=== PATIENT | female | born 1950 | race American Indian/Alaskan Native ===

== ENCOUNTER 2018-03-29 14:17 | Emergency (ER) | payer BC, MEDICARE ==
[2018-03-29 14:44] VITALS: BMI 33.9
[2018-03-29 14:48] VITALS: O2SAT 100
[2018-03-29] MEDS ORDERED: Lidocaine 2% Jelly (Uro-Jet) TOP ONE (16:25)
[2018-03-29 16:28] LABS: SQUAMOUS EPITHIAL 3 /hpf (0-5); URINE BACTERIA RARE (<OCC); URINE BILIRUBIN NEGATIVE (NEGATIVE); URINE BLOOD NEGATIVE (NEGATIVE); URINE CLARITY Clear (Clear); URINE COLOR Yellow (YELLOW); URINE GLUCOSE (UA) NORMAL (Normal); URINE LEUKOCYTE ESTERASE 1+ Leu/uL (Negative); URINE PROTEIN NEGATIVE (NEGATIVE)
--- NOTE | 2018-03-29 16:36 | RAD ---
Date of service: 03/29/2018 PROCEDURE: Radiographs of the chest and abdomen (obstructive series) HISTORY: abd pain, ? rectal stool impaction COMPARISON: No prior. TECHNIQUE: AP radiograph of the chest, with upright and supine radiographs of the abdomen. FINDINGS: CHEST: Lungs: Clear. Cardiovascular: Normal size heart. No pulmonary vascular congestion. No aortic atherosclerotic calcification present Pleura: No pleural fluid. No pneumothorax. Other findings: None. ABDOMEN AND PELVIS: Bowel: Constipation without fecal impaction or obstruction. Free air: None. Bones: Unremarkable. Other findings: None. IMPRESSION: Constipation without fecal impaction or obstruction.
[2018-03-29 16:39] LABS: BASO # 0.1 K/uL (0.0-0.2); BASO % 0.7 % (0.0-2.0); EOS # 0.2 K/uL (0.0-0.7); EOS % 1.5 % (0.0-4.0); HEMOGLOBIN 11.7 g/dL (11.0-16.0); LYMPH # 2.9 K/uL (1.0-4.3); LYMPH % 27.7 % (20.0-40.0); MEAN CELL VOLUME 90.2 fL (81.0-99.0); MEAN CORPUSCULAR HEMOGLOBIN 29.3 pg (27.0-31.0); MEAN CORPUSCULAR HGB CONC 32.5 g/dL (33.0-37.0); MEAN PLATELET VOLUME 8.3 fL (7.2-11.7); MONO # 0.8 K/uL (0.0-0.8); MONO % 8.1 % (0.0-10.0); NEUT # 6.4 K/uL (1.8-7.0); NRBC % 0.1 % (0.0-2.0); RBC 3.98 Mil/uL (3.80-5.20); RED CELL DISTRIBUTION WIDTH 11.9 % (11.5-14.5); WHITE BLOOD COUNT 10.3 K/uL (4.8-10.8)
[2018-03-29 16:52] LABS: ALB/GLOB RATIO 1.2 (1.0-2.1); ALBUMIN 4.4 g/dL (3.5-5.0); CALCIUM 8.9 mg/dl (8.6-10.4)
[2018-03-29] MEDS ORDERED: Lidocaine 2% Jelly (Uro-Jet) ONE (16:58)
[2018-03-29 18:35] VITALS: BP 150/82; PULSE 72; RESP 18; TEMP 98
[2018-03-29] MEDS ORDERED: Magnesium Citrate Oral SOL (300 ml) PO ONE (18:40)
--- NOTE | 2018-03-29 18:41 | C.PDOC ---
History Of Present Illness 67 year old female presents to the ED c/o chronic constipation. Patient reports she digitally disimpaction herself. Patient reports she eat 3-4 bags of peanuts by herself and her diet is based on meat, stuffing and potatoes. Patient denies fever, chills, nausea, vomit, diarrhea, back pain, dysuria, hematuria. Time Seen by Provider: 03/29/18 15:52 Chief Complaint (Nursing): Abdominal Pain History Per: Patient History/Exam Limitations: no limitations Onset/Duration Of Symptoms: Days Current Symptoms Are (Timing): Still Present Location Of Pain/Discomfort: Diffuse Quality Of Discomfort: "Pain" Associated Symptoms: Constipation. denies: Nausea, Vomiting, Diarrhea, Urinary Symptoms Recent travel outside of the [place]: No Additional History Per: Patient Abnormal Vaginal Bleeding: No Past Medical History Reviewed: Historical Data, Nursing Documentation, Vital Signs Vital Signs: Last Vital Signs Temp 98 F 03/29/18 18:35 Pulse 72 03/29/18 18:35 Resp 18 03/29/18 18:35 BP 150/82 03/29/18 18:35 Pulse Ox 100 03/29/18 18:35 - Medical History PMH: HTN Surgical History: No Surg Hx Family History: States: Unknown Family Hx - Social History Hx Alcohol Use: No Hx Substance Use: Yes (former cocaine, heroin user) - Immunization History Hx Tetanus Toxoid Vaccination: No Hx Influenza Vaccination: No Hx Pneumococcal Vaccination: No Review Of Systems Constitutional: Negative for: Fever, Chills Eyes: Negative for: Vision Change Cardiovascular: Negative for: Chest Pain Respiratory: Negative for: Shortness of Breath Gastrointestinal: Positive for: Abdominal Pain, Constipation. Negative for: Nausea, Vomiting Genitourinary: Negative for: Dysuria, Hematuria Skin: Negative for: Rash Neurological: Negative for: Weakness, Numbness Physical Exam - Physical Exam Appears: Non-toxic, No Acute Distress Skin: Normal Color, Warm, Dry Head: Atraumatic, Normacephalic Eye(s): bilateral: Normal Inspection Neck: Normal ROM, Supple Chest: Symmetrical Cardiovascular: Rhythm Regular Respiratory: Normal Breath Sounds, No Rales, No Rhonchi, No Wheezing Gastrointestinal/Abdominal: Soft, No Tenderness, No Guarding, No Rebound Extremity: Normal ROM, No Tenderness, No Swelling Neurological/Psych: Oriented x3, Normal Speech, Normal Cognition Gait: Steady ED Course And Treatment - Laboratory Results Result Diagrams: 03/29/18 16:31 03/29/18 16:31 Lab Results: Total Bilirubin 0.7 mg/dL (0.2-1.3) 03/29/18 16:31 AST 27 U/L (14-36) 03/29/18 16:31 ALT 12 U/L (9-52) 03/29/18 16:31 Alkaline Phosphatase 66 U/L (38-126) 03/29/18 16:31 Total Protein 8.1 g/dL (6.3-8.3) 03/29/18 16:31 Albumin 4.4 g/dL (3.5-5.0) 03/29/18 16: Globulin 3.7 gm/dL (2.2-3.9) 03/29/18 16: Albumin/Globulin Ratio 1.2 (1.0-2.1) 03/29/18 16: Lipase 113 U/L (23-300) 03/29/18 16:31 Urine Color Yellow (YELLOW) 03/29/18 16:19 Urine Clarity Clear (Clear) 03/29/18 16: Urine pH 5.0 (5.0-8.0) 03/29/18 16:19 Ur Specific [place] 1.017 (1.003-1.030) 03/29/18 16:19 Urine Protein Negative mg/dL (NEGATIVE) 03/29/18 16:19 Urine Glucose (UA) Normal mg/dL (Normal) 03/29/18 16: Urine Ketones Negative mg/dL (NEGATIVE) 03/29/18 16: Urine Blood Negative (NEGATIVE) 03/29/18 16:19 Urine Nitrate Negative (NEGATIVE) 03/29/18 16:19 Urine Bilirubin Negative (NEGATIVE) 03/29/18 16: Urine Urobilinogen 2.0 mg/dL (0.2-1.0) H 03/29/18 16:19 Ur Leukocyte Esterase 1+ [place]/uL (Negative) H 03/29/18 16:19 Urine WBC (Auto) 2 /hpf (0-5) 03/29/18 16:19 Urine RBC (Auto) 2 /hpf (0-3) 03/29/18 16:19 Ur Squamous Epith Cells 3 /hpf (0-5) 03/29/18 16:19 Urine Bacteria Rare (<OCC) 03/29/18 16:19 O2 Sat by Pulse Oximetry: 100 (ON RA) Pulse Ox Interpretation: Normal - Other Rad Obstructive Series X-Ray: Interpreted by Me, Viewed By Me Interpretation: Moderate amount of stool in rectum Medical Decision Making Medical Decision Making: acute on chronic constipation ? rectal impaction s/p rectal disempaction passing more stool after laxative d/c home with laxatives Disposition Doctor Will See Patient In The: Office Counseled Patient/Family Regarding: Studies Performed, Diagnosis - Disposition Referrals: Archie Olivera, MARIANO, [employer] [Advanced Practice Nurse] - Disposition: HOME/ ROUTINE Disposition Time: 18:40 Condition: GOOD Additional Instructions: you were disempacted in the ED Drink a bottle of Mag Citrate now and re-evaluate your abdominal discomfort after using the bathroom 2-3 times diet and exercise changes drink more water. Instructions: Constipation in Adults Forms: [facility] (Sing[place]an) - Clinical Impression Clinical Impression: Constipation - Scribe Statement The provider has reviewed the documentation as recorded by the Scribe Tani Wild All medical record entries made by the Scribe were at my direction and personally dictated by me. I have reviewed the chart and agree that the record accurately reflects my personal performance of the history, physical exam, medical decision making, and the department course for this patient. I have also personally directed, reviewed, and agree with the discharge instructions and disposition.
[2018-03-29] MEDS ORDERED: Magnesium Citrate Oral SOL (300 ml) ONE (18:47)
== END 2018-03-29 18:49 | disposition home or self-care (01) ==
LOC: C.ER 14:17
DX: K59.00 Constipation, unspecified (principal)